=== PATIENT | male | born 1985 | race African-American/Black ===

== ENCOUNTER 2022-04-12 20:17 | Emergency (ER) | payer SELFPAY ==
[2022-04-12] MEDS ORDERED: Sodium Chloride 0.9% 1,000 ML IV ONE ×2 (20:34→21:43)
[2022-04-12] MEDS ORDERED: Ketorolac 30 MG/ML SDV IVPUSH ONE (20:34)
[2022-04-12] MEDS ORDERED: Ondansetron 4 MG/2 ML SDV IVPUSH ONE (20:34)
[2022-04-12] MEDS ORDERED: Acetaminophen 500 MG Tab PO ONE (20:36)
[2022-04-12 21:21] LABS: BLOOD UREA NITROGEN,BUN 13 mg/dL (7.0-18.0); CARBON DIOXIDE,CO2 26.3 mmol/L (21.0-32.0); CHLORIDE,CL 97 mmol/L (98-107); GLUCOSE RANDOM 153 mg/dL (74-106); POTASSIUM,K 3.7 mmol/L (3.5-5.1); SODIUM,NA 134 mmol/L (136-148)
[2022-04-12 21:40] LABS: CORONAVIRUS COVID-19 NAA NEGATIVE (NEGATIVE); INFLUENZA A NAA NEGATIVE (NEGATIVE); INFLUENZA B NAA NEGATIVE (NEGATIVE)
[2022-04-12] MEDS ORDERED: Azithromycin 250 MG Tab PO SCH (22:00)
[2022-04-12 22:44] VITALS: BP 105/67; PULSE 86
== END 2022-04-12 22:54 | disposition home or self-care (01) ==
LOC: MW.ED 20:17
DX: B34.9 Viral infection, unspecified (principal); Z79.899 Other long term (current) drug therapy; Z20.822 Contact with and (suspected) exposure to COVID-19
CPT/HCPCS: 0240U; 36415; 71045; 71045-26; 80053; 81001; 82550; 83605; 85025; 87040; 96374; 96375; 99283-25; A9270-GY; J1885; J2405; J7030

== ENCOUNTER 2022-04-16 08:37 | Emergency (ER) | payer OTHER ==
[2022-04-16] MEDS ORDERED: Sodium Chloride 0.9% 2.5 ML Syringe FLUSH PRN (08:47)
[2022-04-16] MEDS ORDERED: Sodium Chloride 0.9% 10 ML Syringe FLUSH PRN (08:47)
[2022-04-16 09:18] LABS: BLOOD UREA NITROGEN,BUN 13 mg/dL (7.0-18.0); CARBON DIOXIDE,CO2 26.1 mmol/L (21.0-32.0); CHLORIDE,CL 100 mmol/L (98-107); GLUCOSE RANDOM 147 mg/dL (74-106); POTASSIUM,K 3.6 mmol/L (3.5-5.1); SODIUM,NA 137 mmol/L (136-148)
[2022-04-16] MEDS ORDERED: Iopamidol 755 MG/ML 500 ML Multipack Bottle IVPUSH STA (10:02)
[2022-04-16 11:15] VITALS: BP 118/64; PULSE 77
== END 2022-04-16 11:15 | disposition home or self-care (01) ==
LOC: MW.ED 08:37
DX: J18.9 Pneumonia, unspecified organism (principal)
CPT/HCPCS: 36415; 71045; 71275; 80053; 84484; 85025; 85379; 93005; 99285; J3490; Q9967

== ENCOUNTER 2022-04-17 21:56 | Emergency (ER) | payer OTHER ==
[2022-04-17] MEDS ORDERED: Acetaminophen/HYDROcodone 325-5 MG Tab PO ONE (22:23)
[2022-04-17] MEDS ORDERED: Levofloxacin 500 MG Tab PO ONE (22:26)
[2022-04-17 23:09] LABS: BLOOD UREA NITROGEN,BUN 12 mg/dL (7.0-18.0); CARBON DIOXIDE,CO2 27.6 mmol/L (21.0-32.0); CHLORIDE,CL 99 mmol/L (98-107); GLUCOSE RANDOM 259 mg/dL (74-106); POTASSIUM,K 3.8 mmol/L (3.5-5.1); SODIUM,NA 136 mmol/L (136-148)
[2022-04-18 00:17] VITALS: BP 129/85; PULSE 86
== END 2022-04-18 00:17 | disposition home or self-care (01) ==
LOC: MW.ED 21:56
DX: J18.9 Pneumonia, unspecified organism (principal)
CPT/HCPCS: 36415; 71045; 80053; 84484; 85025; 93005; 99285; A9270; 93010; 99284

== ENCOUNTER 2024-03-15 21:31 | Emergency (ER) | payer SELFPAY ==
[2024-03-15] MEDS: Tetracaine HCl/PF 0.5% 4 ML Bottle EYEBOTH ONE (21:38)
[2024-03-15 21:39] VITALS: BP 150/93; PULSE 77
[2024-03-15] MEDS: Erythromycin Base 0.5% Ophth Oint 1 GM Tube EYELF ONE (22:11)
[2024-03-15] MEDS: Acetaminophen/oxyCODONE 325-5 MG Tab PO ONE (22:11)
== END 2024-03-15 22:20 | disposition home or self-care (01) ==
LOC: MW.ED 21:31
DX: T26.92XA Corrosion of left eye and adnexa, part unspecified, initial encounter (principal); Z75.8 Other problems related to medical facilities and other health care; X58.XXXA Exposure to other specified factors, initial encounter
CPT/HCPCS: 99283; A9270-GY; J3490